=== PATIENT | male | born 1970 | race Caucasian/White ===

== ENCOUNTER 2019-11-16 11:09 | Day surgery (SDC) | payer OTHER ==
[~2019-11-16] VITALS: Ht 188 cm; Wt 99.3 kg
[~2019-11-16 11:09] MED LIST: Inderal 20 mg T20 MG PO; OMEP20ER PO
--- NOTE | 2019-11-16 12:57 | NUR ---
History, Chart, Medications and Allergies reviewed before start of procedure. Lungs clear T/O to Auscultation. Patient confirms NPO status and agrees with scheduled surgery. Patient States Post-Procedure ride home has been arranged. Patient reports completing Chlorhexadine shower X2 prior to admission to hospital.
--- NOTE | 2019-11-16 18:51 | NUR ---
1824-GOOD CMS TO LEFT FINGERS. LEFT WRIST DRESSING DRY/INTACT. SPLINT PUT ON RIGHT WRIST. UP TO CHAIR W/O PROBLEM.
--- NOTE | 2019-11-17 11:25 | NUR ---
11/17/19 1125 Keely Castillo VERIFICATIONS: EDIT CHART.
== END 2019-11-16 23:20 | disposition home or self-care (01) ==
LOC: ORSCMMR 11:09 → ORD 14:00 → ORSCMMR 14:00
PROVIDERS: Orthopaedic Surgery
PROC: 0PSJ04Z Reposition Left Radius with Internal Fixation Device, Open Approach (ICD-10-PCS; principal; 2019-11-16 15:45)
DX: S52.572A Other intraarticular fracture of lower end of left radius, initial encounter for closed fracture (principal); W17.89XA Other fall from one level to another, initial encounter; Z79.899 Other long term (current) drug therapy
CPT/HCPCS: C1713; J0690; J1100; J1885; J2250; J2405; J2704; J3010; J7120